=== PATIENT | male | born 1990 | race Caucasian/White ===

== ENCOUNTER 2017-05-09 02:40 | Emergency (ER) | payer OTHER ==
[2017-05-09 03:11] LABS: Basophils # (A) 0.1 k/uL (0-0.2); Basophils % (A) 1 %; CH 31.4; CHCM 35.3; Eosinophils # (A) 0.3 k/uL (0-0.7); Eosinophils % (A) 3 %; HCT 45.7 % (39.0-53.0); HDW 2.35; HGB 16.2 gm/dL (13.0-17.5); Luc % (Auto) 2; Lymphocytes # (A) 3.1 k/uL (1.0-4.8); Lymphocytes % (A) 35 %; MCH 31.8 pg (25.0-35.0); MCHC 35.5 g/dL (31.0-37.0); MCV 89.3 fL (80.0-100.0); Mean Platelet Volume 6.7; Monocytes # (A) 0.5 k/uL (0-1.0); Monocytes % (A) 6 %; Neutrophils # (A) 4.7 k/uL (1.3-7.7); Neutrophils % (A) 53 %; RBC 5.11 m/uL (4.30-5.90); RDW 12.4 % (11.5-15.5); WBC 8.8 k/uL (3.8-10.6); WBC (Perox) 8.62
[2017-05-09 03:23] LABS: ALT 52 U/L (21-72); AST 34 U/L (17-59); Acetaminophen <10.0 ug/mL; Alkaline Phosphatase 84 U/L (38-126); Anion Gap 13 mmol/L; Blood Urea Nitrogen 11 mg/dL (9-20); Calcium 9.5 mg/dL (8.4-10.2); Carbon Dioxide 25 mmol/L (22-30); Chloride 106 mmol/L (98-107); Glucose 101 mg/dL (74-99); Non-African American GFR(MDRD) >60 (>60 ml/min/1.73 sqM); Potassium 4.2 mmol/L (3.5-5.1); Salicylate <1.0 mg/dL; Sodium 144 mmol/L (137-145); Total Bilirubin 0.5 mg/dL (0.2-1.3); Total Protein 7.8 g/dL (6.3-8.2)
[2017-05-09 03:25] LABS: Alcohol 177 mg/dL
--- NOTE | 2017-05-09 03:41 | ED ---
General Adult HPI - General Chief complaint: Overdose Stated complaint: overdose Time Seen by Provider: 05/09/17 02:57 Source: family, RN notes reviewed, old records reviewed Mode of arrival: wheelchair - History of Present Illness Initial comments: This is a 27-year-old male to the ER for evaluation of altered mental status, found somnolent and mildly responsive, increased alcohol intake tonight as well as benzodiazepine intake. Not trying to commit suicide - Related Data Home Medications Medication Instructions Recorded Confirmed No Known Home Medications [No 05/09/17 05/09/17 Known Home Medications] Allergies Allergy/AdvReac Type Severity Reaction Status Date / Time No Known Allergies Allergy Verified 05/09/17 07:13 Review of Systems ROS Statement: Those systems with pertinent positive or pertinent negative responses have been documented in the HPI. ROS Other: All systems not noted in ROS Statement are negative. Past Medical History Past Medical History: No Reported History History of Any Multi-Drug Resistant Organisms: None Reported Past Surgical History: No Surgical Hx Reported Past Anesthesia/Blood Transfusion Reactions: Unable to Obtain Past Psychological History: Depression Smoking Status: Current every day smoker Past Alcohol Use History: Daily Past Drug Use History: Marijuana General Exam General appearance: alert, in no apparent distress Head exam: Present: atraumatic, normocephalic, normal inspection Eye exam: Present: normal appearance, PERRL, EOMI. Absent: scleral icterus, conjunctival injection, periorbital swelling ENT exam: Present: normal exam, mucous membranes moist Neck exam: Present: normal inspection. Absent: tenderness, meningismus, lymphadenopathy Respiratory exam: Present: normal lung sounds bilaterally. Absent: respiratory distress, wheezes, rales, rhonchi, stridor Cardiovascular Exam: Present: regular rate, normal rhythm, normal heart sounds. Absent: systolic murmur, diastolic murmur, rubs, gallop, clicks GI/Abdominal exam: Present: soft, normal bowel sounds. Absent: distended, tenderness, guarding, rebound, rigid Extremities exam: Present: normal inspection, full ROM, normal capillary refill. Absent: tenderness, pedal edema, joint swelling, calf tenderness Back exam: Present: normal inspection Neurological exam: Present: alert, oriented X3, CN II-XII intact Psychiatric exam: Present: normal affect, normal mood Skin exam: Present: warm, dry, intact, normal color. Absent: rash Course Vital Signs 05/09/17 05/09/17 05/09/17 02:54 04:41 06:41 Pulse Rate 98 87 102 H Respiratory 18 20 18 Rate Blood Pressure 124/78 114/69 O2 Sat by Pulse 98 93 L 98 Oximetry - Reevaluation(s) Reevaluation #1: 05/09/17 03:41 Patient agitated, acting appropriately, redirectable Medical Decision Making - Medical Decision Making 27. ER for drug ingestion, patient coming in for psychiatric evaluation and treatment. Not homicidal or suicidal. Patient discharged home - Lab Data Result diagrams: 05/09/17 02:53 05/09/17 02:53 Lab Results 05/09/17 05/09/17 05/09/17 Range/Units 02:53 02:53 06:55 WBC 8.8 (3.8-10.6) k/uL RBC 5.11 (4.30-5.90) m/uL Hgb 16.2 (13.0-17.5) gm/dL Hct 45.7 (39.0-53.0) % MCV 89.3 (80.0-100.0) fL MCH 31.8 (25.0-35.0) pg MCHC 35.5 (31.0-37.0) g/dL RDW 12.4 (11.5-15.5) % Plt Count 225 (150-450) k/uL Neutrophils % 53 % Lymphocytes % 35 % Monocytes % 6 % Eosinophils % 3 % Basophils % 1 % Neutrophils # 4.7 (1.3-7.7) k/uL Lymphocytes # 3.1 (1.0-4.8) k/uL Monocytes # 0.5 (0-1.0) k/uL Eosinophils # 0.3 (0-0.7) k/uL Basophils # 0.1 (0-0.2) k/uL Sodium 144 (137-145) mmol/L Potassium 4.2 (3.5-5.1) mmol/L Chloride 106 (98-107) mmol/L Carbon Dioxide 25 (22-30) mmol/L Anion Gap 13 mmol/L BUN 11 (9-20) mg/dL Creatinine 0.80 (0.66-1.25) mg/dL Est GFR (MDRD) Af Amer >60 (>60 ml/min/1.73 sqM) Est GFR (MDRD) Non-Af >60 (>60 ml/min/1.73 sqM) Glucose 101 H (74-99) mg/dL Calcium 9.5 (8.4-10.2) mg/dL Total Bilirubin 0.5 (0.2-1.3) mg/dL AST 34 (17-59) U/L ALT 52 (21-72) U/L Alkaline Phosphatase 84 (38-126) U/L Total Protein 7.8 (6.3-8.2) g/dL Albumin 4.8 (3.5-5.0) g/dL Salicylates <1.0 mg/dL Urine Opiates Screen Not Detected (NotDetected) Ur Oxycodone Screen Not Detected (NotDetected) Urine Methadone Screen Not Detected (NotDetected) Ur Propoxyphene Screen Not Detected (NotDetected) Acetaminophen <10.0 ug/mL Ur Barbiturates Screen Not Detected (NotDetected) U Tricyclic Antidepress Not Detected (NotDetected) Ur Phencyclidine Scrn Not Detected (NotDetected) Ur Amphetamines Screen Not Detected (NotDetected) U Methamphetamines Scrn Not Detected (NotDetected) U Benzodiazepines Scrn Detected H (NotDetected) Urine Cocaine Screen Not Detected (NotDetected) U Marijuana (THC) Screen Detected H (NotDetected) Serum Alcohol 177 mg/dL Disposition Clinical Impression: Accidental drug ingestion, Cannabis abuse, Opioid use disorder, mild, abuse Disposition: Left Against Medical Advice Condition: Fair Referrals: Juan Francisco Hardwick MD [Primary Care Provider] - 1-2 days
[2017-05-09 06:48] VITALS: BP 114/69; PULSE 102; RESP 18
== END 2017-05-09 07:14 | disposition left against medical advice (07) ==
LOC: EC 02:40
DX: R41.82 Altered mental status, unspecified (principal); F32.9 Major depressive disorder, single episode, unspecified; F17.200 Nicotine dependence, unspecified, uncomplicated
CPT/HCPCS: 36415; 80053; 80306; 80320; 82075; 83520; 85025; 99284

== ENCOUNTER 2018-06-02 18:13 | Emergency (ER) | payer OTHER ==
[2018-06-02] MEDS ORDERED: TETANUS-DIPHTHERIA TOX (PF) 0.5 ML VIAL IM ONE (18:39)
[2018-06-02] MEDS ORDERED: LORazepam 2 MG/ML INJ IM STA (18:49)
--- NOTE | 2018-06-02 18:50 | ED ---
Psych HPI - General Chief Complaint: Psychiatric Symptoms Stated Complaint: Mental health Time Seen by Provider: 06/02/18 18:24 Source: patient Mode of arrival: ambulatory - History of Present Illness Initial Comments: Patient is a 28-year-old male presenting by [employer] for suicidal ideation. Patient is not cooperative with giving history but please states that they were called because the patient had cut his wrists within the last 24 hours and he was concerned. He admits to doing it in an attempt to kill himself. It is unclear whether he is up-to-date on vaccinations. - Related Data Home Medications Medication Instructions Recorded Confirmed No Known Home Medications 05/09/17 05/09/17 Allergies Allergy/AdvReac Type Severity Reaction Status Date / Time No Known Allergies Allergy Verified 05/09/17 07:13 Review of Systems ROS Statement: Those systems with pertinent positive or pertinent negative responses have been documented in the HPI. Patient will not cooperate with history taking. However, he does admit to being suicidal ROS Other: All systems not noted in ROS Statement are negative. Past Medical History Past Medical History: No Reported History History of Any Multi-Drug Resistant Organisms: None Reported Past Surgical History: No Surgical Hx Reported Past Anesthesia/Blood Transfusion Reactions: Unable to Obtain Past Psychological History: Anxiety, Bipolar, Depression Smoking Status: Current every day smoker Past Alcohol Use History: Daily Past Drug Use History: Marijuana General Exam - General Exam Comments Initial Comments: Constitutional: Pt is oriented to person, place, and time. Pt appears well- developed and well-nourished. No distress. HENT: Head: Normocephalic and atraumatic. Eyes: EOM are normal. Neck: Normal range of motion. Neck supple. Cardiovascular: Tachycardic, regular rhythm, S1 normal, S2 normal and normal heart sounds. Exam reveals no gallop and no friction rub. No murmur heard. Pulmonary/Chest: Effort normal and breath sounds normal. No tachypnea and no bradypnea. No respiratory distress. No wheezes or rales noted. Abdominal: Soft. Bowel sounds are normal. Pt exhibits no shifting dullness, no distension, no pulsatile liver, no fluid wave, no abdominal bruit and no ascites. There is no tenderness. There is no rigidity, no rebound, no guarding, no tenderness at McBurney's point and negative Albright's sign. Musculoskeletal: Normal range of motion. Neurological: Pt is alert and oriented to person, place, and time. No cranial nerve deficit. Skin: Skin is warm and dry. No rash noted. Pt is not diaphoretic. No pallor. Multiple superficial lacerations on the anterior aspects of both breasts. No deep structures or tissues involved Psychiatric: Pt has an anxious affect. Patient also admits to being suicidal. No hallucinations present Limitations: no limitations Course Vital Signs 06/02/18 06/02/18 18:19 23:20 Temperature 98.3 F 97.4 F L Pulse Rate 112 H 92 Respiratory 16 16 Rate Blood Pressure 130/84 130/76 O2 Sat by Pulse 97 97 Oximetry Medical Decision Making - Medical Decision Making Patient was initiallybe intoxicated and therefore could not be medically cleared. Patient was kept in the ED until cleared from alcohol standpoint and reevaluated by EPS nurse. After further evaluation and sobriety, the patient denies any suicidal ideation and because of the familiarity of the patient with the psychiatric staff it was felt that the patient is acting out to gain attention as he recently broke up with his boyfriend. This is discussed with the on-call psychiatrist and patient was cleared be discharged. At the time of disposition, patient denied any suicidal ideation it was felt that the patient was safe to be discharged. - Lab Data Lab Results 06/02/18 Range/Units 18:46 Urine Opiates Screen Not Detected (NotDetected) Ur Oxycodone Screen Not Detected (NotDetected) Urine Methadone Screen Not Detected (NotDetected) Ur Propoxyphene Screen Not Detected (NotDetected) Ur Barbiturates Screen Not Detected (NotDetected) U Tricyclic Antidepress Not Detected (NotDetected) Ur Phencyclidine Scrn Not Detected (NotDetected) Ur Amphetamines Screen Not Detected (NotDetected) U Methamphetamines Scrn Not Detected (NotDetected) U Benzodiazepines Scrn Detected H (NotDetected) Urine Cocaine Screen Detected H (NotDetected) U Marijuana (THC) Screen Detected H (NotDetected) Disposition Clinical Impression: Self-inflicted injury Disposition: HOME SELF-CARE Condition: Good Instructions: Nonsuicidal Self-Injury (ED) Is patient prescribed a controlled substance at d/c from ED?: No Referrals: None,Stated [Primary Care Provider] - 1-2 days Time of Disposition: 01:03
[2018-06-02] MEDS ORDERED: DIPH,PERTUS(ACELL)TETVAC-LF 0.5 ML VIAL IM ONE (19:00)
[2018-06-02 19:09] LABS: Amphetamine Screen,Urine Not Detected (NotDetected); Barbiturate Screen,Urine Not Detected (NotDetected); Benzodiazepines Screen,Urine Detected (NotDetected); Cocaine Screen,Urine Detected (NotDetected); Methadone Screen, Urine Not Detected (NotDetected); Opiate Screen,Urine Not Detected (NotDetected); Oxycodone Screen, Urine Not Detected (NotDetected); Phencyclidine Screen,Urine Not Detected (NotDetected); Tricyclic Antidepressant,Urine Not Detected (NotDetected); Urn Cannabinoid Scrn Detected (NotDetected)
[2018-06-03 01:11] VITALS: BP 123/75; PULSE 79; RESP 18; TEMP 98
== END 2018-06-03 01:11 | disposition home or self-care (01) ==
LOC: EC 18:13
DX: S61.512A Laceration without foreign body of left wrist, initial encounter (principal); S61.511A Laceration without foreign body of right wrist, initial encounter; F17.200 Nicotine dependence, unspecified, uncomplicated; Z23 Encounter for immunization; X78.8XXA Intentional self-harm by other sharp object, initial encounter
CPT/HCPCS: 82075; 80306; 90715; 99285; 90471; 96372; J2060